=== PATIENT | male | born 1985 | race African-American/Black ===

== ENCOUNTER 2016-11-29 06:41 | Emergency (ER) | payer BC, OTHER ==
[2016-11-29 06:49] VITALS: BP 144/89
--- NOTE | 2016-11-29 07:16 | EDM.PDOC ---
ED HPI GENERAL MEDICAL PROBLEM - General Chief Complaint: Respiratory Problem Stated Complaint: FEVER/COUGH Time Seen by Provider: 11/29/16 06:59 Source of Information: Reports: Patient History Limitations: Reports: No Limitations - History of Present Illness INITIAL COMMENTS - FREE TEXT/NARRATIVE: The patient presents with cough and congestion. This has been going for a few days. He denies fever. He has a slight sore throat. He does not smoke and he does not have asthma. Onset: Gradual Duration: Day(s): Severity: Moderate Improves with: Reports: None Worsens with: Reports: None - Related Data Allergies Allergy/AdvReac Type Severity Reaction Status Date / Time No Known Allergies Allergy Verified 09/05/15 11:55 Home Meds: Home Meds Azithromycin [IJD: Azithromycin] 250 mg PO DAILY #6 tab 11/29/16 [Rx] Codeine/Promethazine [Phenergan with Codeine] 5 - 10 ml PO Q6HR PRN #300 ml [Rx] Past Medical History - Past Health History Medical/Surgical History: Denies Medical/Surgical History Social & Family History - Tobacco Use Smoking Status *Q: Never Smoker - Alcohol Use Days Per Week of Alcohol Use: 0 - Recreational Drug Use Recreational Drug Use: No ED ROS GENERAL - Review of Systems Review Of Systems: See Below Constitutional: Reports: No Symptoms HEENT: Reports: Other (congestion and runny nose) Respiratory: Reports: Cough, Sputum Cardiovascular: Reports: No Symptoms Endocrine: Reports: No Symptoms GI/Abdominal: Reports: No Symptoms : Reports: No Symptoms Musculoskeletal: Reports: No Symptoms Skin: Reports: No Symptoms ED EXAM, GENERAL - Physical Exam Exam: See Below Exam Limited By: No Limitations General Appearance: Alert, No Apparent Distress Ears: Normal External Exam, Normal Canal, Normal TMs Nose: Normal Inspection Throat/Mouth: Normal Inspection Head: Atraumatic, Normocephalic Neck: Normal Inspection Respiratory/Chest: No Respiratory Distress, Lungs Clear, Normal Breath Sounds Cardiovascular: Regular Rate, Rhythm, No Edema, No Murmur GI/Abdominal: Soft, Non-Tender, No Organomegaly, No Mass Back Exam: Normal Inspection Extremities: Normal Inspection Neurological: Alert, Oriented, No Motor/Sensory Deficits Course - Vital Signs Last Recorded V/S: Last Vital Signs Temp 97.1 F 11/29/16 06:47 Pulse 76 11/29/16 06:47 Resp 16 11/29/16 06:47 BP 144/89 H 11/29/16 06:47 Pulse Ox 99 11/29/16 06:47 Departure - Departure Time of Disposition: 07:15 Disposition: Home, Self-Care 01 Condition: good Clinical Impression: Bronchitis - Discharge Information Prescriptions: Codeine/Promethazine [Phenergan with Codeine] 5 - 10 ml PO Q6HR PRN #300 ml PRN Reason: Cough Azithromycin [IJD: Azithromycin] 250 mg PO DAILY #6 tab Referrals: Reji Leon MD [Primary Care Provider] - 1 Week (If not better) Forms: ED Department Discharge Additional Instructions: Take the medicine as prescribed. Drink plenty of fluids. Take motrin or tylenol of you have a fever. Follow up with your doctor if not better.
== END 2016-11-29 07:36 | disposition home or self-care (01) ==
LOC: JD.ED 06:41
DX: J40 Bronchitis, not specified as acute or chronic (principal); Z79.2 Long term (current) use of antibiotics
CPT/HCPCS: 99283

== ENCOUNTER 2017-03-23 22:03 | Emergency (ER) | payer OTHER ==
[2017-03-23 22:18] VITALS: BP 144/88
--- NOTE | 2017-03-23 22:27 | EDM.PDOC ---
ED HPI GENERAL MEDICAL PROBLEM - General Chief Complaint: Upper Extremity Injury/Pain Stated Complaint: Right finger injury Time Seen by Provider: 03/23/17 22:20 Source of Information: Reports: Patient, RN Notes Reviewed History Limitations: Reports: No Limitations - History of Present Illness INITIAL COMMENTS - FREE TEXT/NARRATIVE: 31 year old male presents to the ED with complaints of right middle finger pain , bruising and swelling after he dropped a metal pipe on his hand around 5pm this evening. Pain is mostly to the PIP joint. He is able to flex and extend the finger. He denies hand or additional digit injury. No numbness or tingling. No skin wounds. 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 [No Known Home Meds] 03/23/17 [History] Past Medical History - Past Health History Medical/Surgical History: Denies Medical/Surgical History Musculoskeletal History: Reports: Other (See Below) Other Musculoskeletal History: ACL surgery Social & Family History - Tobacco Use Smoking Status *Q: Never Smoker - Alcohol Use Days Per Week of Alcohol Use: 0 - Recreational Drug Use Recreational Drug Use: No Review of Systems - Review of Systems Review Of Systems: See Below Musculoskeletal: Reports: Other (right middle finger, pain and swelling) Skin: Reports: No Symptoms. Denies: Erythema, Wound Neurological: Reports: No Symptoms. Denies: Numbness, Tingling, Weakness ED EXAM, GENERAL - Physical Exam Exam: See Below Exam Limited By: No Limitations General Appearance: Alert, WD/WN, No Apparent Distress Respiratory/Chest: No Respiratory Distress, Lungs Clear Cardiovascular: Regular Rate, Rhythm Extremities: Other (bruising, swelling and tenderness to right PIP joint. He is able to flex and extend the middle finger but ROM is limited due to joint effusion. Neurovascular status intact. ) Neurological: Alert, Oriented, No Motor/Sensory Deficits Skin Exam: Warm, Dry, Intact Course - Vital Signs Last Recorded V/S: Last Vital Signs Temp 97.5 F 03/23/17 22:17 Pulse 68 03/23/17 22:17 Resp 20 03/23/17 22:17 BP 144/88 H 03/23/17 22:17 Pulse Ox 98 03/23/17 22:17 - Orders/Labs/Meds Orders: Active Orders 24 hr Category Date Time Status Fingers Third Digit Rt F7 [CR] Stat Exams 03/23/17 22:23 Ordered - Re-Assessments/Exams Free Text/Narrative Re-Assessment/Exam: X-rays obtained of right middle finger. No fracture or dislocation appreciated. Radiologist report is pending. Patient educated on supportive care. Departure - Departure Time of Disposition: 22:30 Disposition: Home, Self-Care 01 Condition: Good Clinical Impression: Finger injury Qualifiers: Encounter type: initial encounter Laterality: right Qualified Code(s): S69.91XA - Unspecified injury of right wrist, hand and finger(s), initial encounter - Discharge Information Referrals: Althea Vaughn PA-C [Primary Care Provider] - Forms: ED Department Discharge Additional Instructions: Rest, ice and elevate Tylenol or Ibuprofen as needed for pain Follow-up in the clinic if not improved in 1-2 weeks - My Orders Last 24 Hours: My Active Orders 03/23/17 22:23 Fingers Third Digit Rt F7 [CR] Stat - Assessment/Plan Last 24 Hours: My Active Orders 03/23/17 22:23 Fingers Third Digit Rt F7 [CR] Stat
--- NOTE | 2017-03-24 07:44 | CR ---
Right third finger: Four views of the right third finger were obtained. Joint spaces are maintained. No fracture, dislocation or other bony abnormality is seen. Minimal calcification is seen off the middle phalanx of the right third finger which is believed to be incidental. Impression: 1. No acute bony abnormality is identified on right third finger study. Diagnostic code #1
== END 2017-03-23 22:35 | disposition home or self-care (01) ==
LOC: JD.ED 22:03
DX: S69.91XA Unspecified injury of right wrist, hand and finger(s), initial encounter (principal); W20.8XXA Other cause of strike by thrown, projected or falling object, initial encounter
CPT/HCPCS: 73140-26-F7; 73140-F7; 99283

== ENCOUNTER 2017-06-05 15:19 | Emergency (ER) | payer OTHER ==
[2017-06-05 15:34] VITALS: BP 143/89
[2017-06-05] MEDS ORDERED: Cyclobenzaprine 10 MG Tab PO ONE (15:45)
[2017-06-05] MEDS ORDERED: Ketorolac 60 MG/2 ML SDV IM ONE (15:45)
--- NOTE | 2017-06-05 15:49 | EDM.PDOC ---
ED HPI GENERAL MEDICAL PROBLEM - General Chief Complaint: Neck Problem Stated Complaint: PAIN IN NECK Time Seen by Provider: 06/05/17 15:37 Source of Information: Reports: Patient History Limitations: Reports: No Limitations - History of Present Illness INITIAL COMMENTS - FREE TEXT/NARRATIVE: Patient is a 32 -year-old male presents ED complaining of midline cervical neck pain. Patient states this past Monday while doing behind the head overhead shoulder presses he accidentally dropped the weight on the back of his neck. The weight was 260 pounds. Ever since then hes had pain localized to the base of his neck worse with palpation and movement. States pain is worse with bending his neck backwards. Pain is also worsened but not as severe with turning head left to right and chin to his chest. He's had no numbness or tingling to his extremities. Questions may be possible weakness to his upper extremities. Otherwise has no prior history of injury to the neck. Has been utilizing warm compresses and [id number] Advil for pain. Denies any additional past medical history and currently taking no medications. 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 Neck Pain Score (Numeric/FACES): 7 - Related Data Allergies Allergy/AdvReac Type Severity Reaction Status Date / Time No Known Allergies Allergy Verified 06/05/17 15:27 Home Meds: Home Meds Acetaminophen/HYDROcodone [Beulah 325-5 MG] 1 tab PO Q6H PRN #20 tablet 06/05/17 [Rx] Orphenadrine [Norflex] 100 mg PO BEDTIME PRN #10 tab.er 06/05/17 [Rx] Prednisone [IJD: predniSONE] 40 mg PO WITHBREAKFAST #10 tab 06/05/17 [Rx] Past Medical History - Past Health History Medical/Surgical History: Denies Medical/Surgical History Musculoskeletal History: Reports: Other (See Below) Other Musculoskeletal History: ACL surgery Social & Family History - Tobacco Use Smoking Status *Q: Never Smoker - Caffeine Use Caffeine Use: Reports: Coffee, Energy Drinks, Soda, Tea - Alcohol Use Days Per Week of Alcohol Use: 0 - Recreational Drug Use Recreational Drug Use: No ED ROS GENERAL - Review of Systems Review Of Systems: ROS reveals no pertinent complaints other than HPI. ED EXAM, UPPER BACK/NECK PAIN - Physical Exam Exam: See Below Exam Limited By: No Limitations General Appearance: Alert, WD/WN, No Apparent Distress Eye Exam: Bilateral Eye: PERRL Ears Exam: Hearing Grossly Normal Nose Exam: Normal Inspection Throat/Mouth Exam: Normal Oropharynx, Normal Voice, No Airway Compromise Head Exam: Atraumatic, Normocephalic Neck Exam: Normal Alignment, Limited Range of Motion, Paraspinous Muscle Tender , Spinous Processes Tender, Stiff Neck, Tenderness, Tender Midline, Other (Pain is along C6 and C7. ) Nexus Criteria: Posterior, Midline Cervical Tenderness. No: Evidence of Intoxication, Altered Level of Consciousness, Focal Neurological Deficit, Painful Distraction Injuries Cardiovascular/Respiratory: Regular Rate, Rhythm, No M/R/G, Normal Peripheral Pulses, Normal Breath Sounds, No Respiratory Distress Extremities: Normal Inspection, Normal Range of Motion, Non-Tender, No Pedal Edema, Normal Capillary Refill Neurologic: terra cotta setter II-XII nml As Tested, No Motor/Sensory Deficits, Normal Mood/ Affect, Oriented x 3, Motor Weakness (upper and lower extremities. ) Psychiatric: Normal Affect, Normal Mood Skin Exam: Normal Color, Warm/Dry Lymphatic: No Adenopathy Course - Vital Signs Last Recorded V/S: Last Vital Signs Temp 98.8 F 06/05/17 15:28 Pulse 92 06/05/17 15:28 Resp 18 06/05/17 15:28 BP 143/89 H 06/05/17 15:28 Pulse Ox 99 06/05/17 15:28 - Orders/Labs/Meds Meds: Medications Discontinued Medications Generic Name Dose Route Start Last Admin Trade Name Freq PRN Reason Stop Dose Admin Cyclobenzaprine HCl 10 mg 06/05/17 15:45 06/05/17 15:52 Flexeril PO 06/05/17 15:46 10 mg ONETIME ONE Administration Ketorolac Tromethamine 60 mg 06/05/17 15:45 06/05/17 15:52 Toradol IM 06/05/17 15:46 60 mg ONETIME ONE Administration Prednisone 40 mg 06/05/17 16:46 06/05/17 16:52 Prednisone PO 06/05/17 16:47 40 mg ONETIME ONE Administration - Re-Assessments/Exams Free Text/Narrative Re-Assessment/Exam: Ordered CT of the cervical spine without contrast. For pain ordered flexeril 10mg PO and also toradol 60mg IM. 06/05/17 16:35 CT cervical spine impression: Minimal degenerative change. Slightly abnormal cervical curvature possibly due to muscle spasm. No acute bony abnormality is seen. 06/05/17 16:46 Minimal relief with the above therapies. Ordered prednisone 4omg PO. Will discharge home with instructions and prescription for norco,norflex, and prednisone. Departure - Departure Time of Disposition: 16:47 Disposition: Home, Self-Care 01 Condition: Good Clinical Impression: Sprain of cervical neck Qualifiers: Encounter type: initial encounter Qualified Code(s): S13.9XXA - Sprain of joints and ligaments of unspecified parts of neck, initial encounter - Discharge Information Prescriptions: Acetaminophen/HYDROcodone [Beulah 325-5 MG] 1 tab PO Q6H PRN #20 tablet PRN Reason: Pain (Severe 7-10) Orphenadrine [Norflex] 100 mg PO BEDTIME PRN #10 tab.er PRN Reason: Spasms Prednisone [IJD: predniSONE] 40 mg PO WITHBREAKFAST #10 tab Instructions: Cervical Sprain, [id number], Pain Medicine Instructions, Easy- to-Read Referrals: Althea Vaughn PA-C [Primary Care Provider] - Forms: ED Department Discharge, ED Return to Work/School Form Additional Instructions: As discussed CT did not reveal any acute bony abnormalities. There was a disc bulge noted to C5-C6. This may be a contributing to her pain unclear at this point. Treatment will be prednisone 40 mg every day for the next 5 days. Take Norflex 100 mg at bedtime until next spasm resolved. Can take it twice a day as needed. Taking Beulah one tab every 6 hours as needed for pain. Do not drive while taking the Norflex and also Beulah due to increase sedation. Follow-up with a primary care provider at [facility] in [place] the first part of next week. Call tomorrow for an appt. You may require PT and MRI of the neck that can be ordered by PCP. Return to the E.D. for any new or worsening symptoms. Refrain from any activities that cause worsening pain. Apply ice to the affected area 4 times daily, 20 minutes in duration, do not place ice directly on the skin.
--- NOTE | 2017-06-05 16:25 | CT ---
CT cervical spine Technique: Multiple axial sections were obtained through the cervical spine. Reconstructed sagittal and coronal images were obtained. Comparison: No prior cervical spine imaging. Findings: Visualized mastoid sinuses and middle ear cavities are clear. Posterior skull base is intact. Vertebral bodies and posterior arches are intact with no fracture being seen. No bony central or bony neural foraminal stenosis is seen. Slight loss of normal cervical curvature is seen as well as slight scoliosis. Small detached bony densities are seen off the anterior and superior endplate of C5 which is felt to be incidental. Minimal calcification at C2-C3 is seen anteriorly. Minimal calcification within a bulging disc is seen posteriorly at C5-C6. Impression: 1. Minimal degenerative change. 2. Slightly abnormal cervical curvature possibly due to muscle spasm. 3. No acute bony abnormality is seen. Diagnostic code #2
[2017-06-05] MEDS ORDERED: predniSONE 20 MG Tab PO ONE (16:46)
== END 2017-06-05 16:55 | disposition home or self-care (01) ==
LOC: JD.ED 15:19
DX: S13.9XXA Sprain of joints and ligaments of unspecified parts of neck, initial encounter (principal); W20.8XXA Other cause of strike by thrown, projected or falling object, initial encounter
CPT/HCPCS: 72125; 96372; 99284; A9270; J1885; 99283